=== PATIENT | female | born 1935 | race Caucasian/White ===

== ENCOUNTER 2019-10-24 10:42 | Inpatient (IN) | payer MEDICARE ==
[~2019-10-24] VITALS: Ht 157.5 cm; Wt 64.6 kg
[2019-10-24] MEDS ORDERED: IV NORMAL SALINE 1000ML BAG 1,000 ML IV ONE (11:15)
[2019-10-24 11:24] LABS: BASO % 0 % (0-3); EOS % 0 % (0-3); HEMATOCRIT 43.6 % (36.0-47.0); HEMOGLOBIN 14.8 g/dL (12.0-15.5); LYMPH # 1.2 x10^3/uL (1.0-4.8); LYMPH % 8 % (24-48); MEAN CORPUSCULAR HEMOGLOBIN 30 pg (25-35); MEAN CORPUSCULAR HGB CONC 34 g/dL (31-37); MEAN CORPUSCULAR VOLUME 90 fL (79-100); MONO # 0.5 x10^3/uL (0.0-1.1); MONO % 4 % (0-9); NEUT # 12.2 x10^3/uL (1.8-7.7); NEUT % 88 % (31-73); PLATELET COUNT 189 x10^3/uL (140-400); RED BLOOD COUNT 4.87 x10^6/uL (3.50-5.40); RED CELL DISTRIBUTION WIDTH 12.7 % (11.5-14.5); WHITE BLOOD COUNT 13.9 x10^3/uL (4.0-11.0)
--- NOTE | 2019-10-24 11:24 | PHYS DOC ---
Adult General HPI HPI Patient is a 84 year old [female] who presents with [syncope. Patient reportedly had been found in bathroom by spouse this morning, partially responsive. Patient reports she murmurs getting out of bed, going to bathroom, and the next thing she remembers was laying on the floor with EMS at her side. Patient does reports he does not know what I'm everything happening, reports patient normally does get up at 3:30 in the morning, however he did not see her for a while, and was not sure what she had been this morning. Does report patient had been alert, but not quite her normal self when he found her. Does report patient has had several prior episodes of this in the past, with history of a known they will issue. Patient reportedly had started on new blood pressure medications 1 month ago, including beta jake and amlodipine. Patient denies any complaints, denies any headache, nausea, vomiting, dizziness, diarrhea. Reports she feels pretty good. ] Review of Systems Review of Systems Constitutional: Denies fever or chills [] Eyes: Denies change in visual acuity, redness, or eye pain [] HENT: Denies nasal congestion or sore throat [] Respiratory: Denies cough or shortness of breath [] Cardiovascular: No additional information not addressed in HPI [] GI: Denies abdominal pain, nausea, vomiting, bloody stools or diarrhea [] : Denies dysuria or hematuria [] Musculoskeletal: Denies back pain or joint pain [] Integument: Denies rash or skin lesions [] Neurologic: Denies headache, focal weakness or sensory changes [] Endocrine: Denies polyuria or polydipsia [] All other systems were reviewed and found to be within normal limits, except as documented in this note. Current Medications Current Medications Current Medications Medications (Trade) Dose Ordered Sig/Connor Start Time Stop Time Status Last Admin Dose Admin Sodium Chloride 1,000 ml @ 1,000 mls/hr 1X ONCE 10/24/19 11:15 10/24/19 12:14 DC 10/24/19 11:48 1,000 MLS/HR Allergies Allergies Allergies Coded Allergies Type Severity Reaction Last Updated Verified Penicillins Allergy Severe severe rash sob 10/24/19 Yes Physical Exam Physical Exam Constitutional: Well developed, well nourished, no acute distress, non-toxic appearance. [] HENT: Normocephalic, atraumatic, bilateral external ears normal, no oral exudates, nose normal. Mucous membranes dry.[] Eyes: PERRLA, EOMI, conjunctiva normal, no discharge. [] Neck: Normal range of motion, no tenderness, supple, no stridor. [] Cardiovascular:Heart rate regular rhythm, no murmur [] Lungs & Thorax: Bilateral breath sounds clear to auscultation [] Abdomen: Bowel sounds normal, soft, no tenderness, no masses, no pulsatile masses. [] Skin: Warm, dry, no erythema, no rash. [] Back: No tenderness, no CVA tenderness. [] Extremities: No tenderness, no cyanosis, no clubbing, ROM intact, no edema. Full range of motion of extremities[] Neurologic: Alert and oriented X 3, normal motor function, normal sensory function, no focal deficits noted. Able to identify sensation bilaterally to legs, arms, face.[] Psychologic: Affect normal, judgement normal, mood normal. [] Current Patient Data Vital Signs Vital Signs Date Time Temp Pulse Resp B/P (MAP) Pulse Ox O2 Delivery O2 Flow Rate FiO2 10/24/19 12:27 83 18 96 10/24/19 11:07 97.6 133/52 (79) Room Air 97.6 Lab Values Laboratory Tests Test 10/24/19 11:07 White Blood Count 13.9 x10^3/uL (4.0-11.0) H Red Blood Count 4.87 x10^6/uL (3.50-5.40) Hemoglobin 14.8 g/dL (12.0-15.5) Hematocrit 43.6 % (36.0-47.0) Mean Corpuscular Volume 90 fL (79-100) Mean Corpuscular Hemoglobin 30 pg (25-35) Mean Corpuscular Hemoglobin Concent 34 g/dL (31-37) Red Cell Distribution Width 12.7 % (11.5-14.5) Platelet Count 189 x10^3/uL (140-400) Neutrophils (%) (Auto) 88 % (31-73) H Lymphocytes (%) (Auto) 8 % (24-48) L Monocytes (%) (Auto) 4 % (0-9) Eosinophils (%) (Auto) 0 % (0-3) Basophils (%) (Auto) 0 % (0-3) Neutrophils # (Auto) 12.2 x10^3/uL (1.8-7.7) H Lymphocytes # (Auto) 1.2 x10^3/uL (1.0-4.8) Monocytes # (Auto) 0.5 x10^3/uL (0.0-1.1) Eosinophils # (Auto) 0.0 x10^3/uL (0.0-0.7) Basophils # (Auto) 0.0 x10^3/uL (0.0-0.2) Segmented Neutrophils % 62 % (35-66) Band Neutrophils % 3 % (0-9) Lymphocytes % 30 % (24-48) Monocytes % 4 % (0-10) Eosinophils % 1 % (0-5) Platelet Estimate Adequate (ADEQUATE) Prothrombin Time 12.0 SEC (11.7-14.0) Prothrombin Time INR 0.9 (0.8-1.1) Sodium Level 143 mmol/L (136-145) Potassium Level 4.0 mmol/L (3.5-5.1) Chloride Level 108 mmol/L (98-107) H Carbon Dioxide Level 25 mmol/L (21-32) Anion Gap 10 (6-14) Blood Urea Nitrogen 16 mg/dL (7-20) Creatinine 0.9 mg/dL (0.6-1.0) Estimated GFR (Cockcroft-Gault) 59.5 BUN/Creatinine Ratio 18 (6-20) Glucose Level 120 mg/dL (70-99) H Calcium Level 9.7 mg/dL (8.5-10.1) Total Bilirubin 0.2 mg/dL (0.2-1.0) Aspartate Amino Transferase (AST) 32 U/L (15-37) Alanine Aminotransferase (ALT) 31 U/L (14-59) Alkaline Phosphatase 77 U/L (46-116) Troponin I Quantitative < 0.017 ng/mL (0.000-0.055) Total Protein 7.5 g/dL (6.4-8.2) Albumin 3.9 g/dL (3.4-5.0) Albumin/Globulin Ratio 1.1 (1.0-1.7) Laboratory Tests 10/24/19 11:07 Laboratory Tests 10/24/19 11:07 EKG EKG [no STEMI per Dr Lei @1105. Sinus rhythm. ] Radiology/Procedures Radiology/Procedures [] Course & Med Decision Making Course & Med Decision Making Pertinent Labs and Imaging studies reviewed. (See chart for details) [Patient reports she is feeling better. Patient spouse and family report they feel good with patient returning home Patient to follow up with PCP next week After attempt to stand, patient weak and unable to stand on own. Family co ncerned would like patient to stay in hospital. @1500 - Discussed with Dr Rios, agrees to admit patient, will admit Observation,. ] Dragon Disclaimer Dragon Disclaimer This electronic medical record was generated, in whole or in part, using a voice recognition dictation system. Departure Departure Impression: Primary Impression: Syncope and collapse Additional Impressions: Weakness Fatigue Disposition: ADMITTED INPATIENT Admitting Physician: SHAE Condition: STABLE Referrals: FAUSTINA JOHNSON (PCP) Patient Instructions: Syncope Additional Instructions: As discussed, make sure she continues to stay hydrated, make sure she is taking her medications each day as prescribed. Follow up with her Primary Care provider next week to recheck on her complaints today. Problem Qualifiers Additional Impressions: Fatigue Fatigue type: chronic, unspecified Qualified Codes: R53.82 - Chronic fatigue, unspecified SALTY MONTALVO APRN Oct 24, 2019 11:24
[2019-10-24 11:33] LABS: CALCIUM 9.7 mg/dL (8.5-10.1); CREATININE 0.9 mg/dL (0.6-1.0); GFR 59.5
[2019-10-24 11:39] LABS: ALBUMIN 3.9 g/dL (3.4-5.0); ALBUMIN/GLOBULIN RATIO 1.1 (1.0-1.7); TOTAL BILIRUBIN 0.2 mg/dL (0.2-1.0); TOTAL PROTEIN 7.5 g/dL (6.4-8.2)
--- NOTE | 2019-10-24 12:06 | RAD ---
EXAM: Head CT without contrast. HISTORY: Syncope. TECHNIQUE: Computed tomographic images of the head were obtained without contrast. *One or more of the following individualized dose reduction techniques were utilized for this examination: 1. Automated exposure control. 2. Adjustment of the mA and/or kV according to patient size. 3. Use of iterative reconstruction technique. COMPARISON: None. FINDINGS: There is no evidence of intracranial hemorrhage. There is no mass effect or midline shift. There is moderate ventricular enlargement. There are chronic appearing infarcts within the left putamen and caudate nucleus. There are areas of hypodensity scattered within the cerebral white matter, likely due to chronic small vessel disease. There may be a tiny focus of encephalomalacia due to chronic infarction within the left cerebellum. There is mucosal thickening and a small amount of frothy fluid within the left aspect of the sphenoid sinus. There is evidence of lens surgery. The mastoid air cells are clear. There is no suspicious calvarial lesion. IMPRESSION: 1. No acute intracranial finding. Note is made that MRI is more sensitive for acute infarction. 2. 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 There may also be a tiny chronic infarct within the left cerebellum. 3. Bilateral cerebral white matter changes, most commonly due to chronic small vessel disease. 4. Moderate ventricular enlargement. This appears to be within acceptable limits for the degree of cerebral atrophy. This is not clearly greater than expected for cerebral volume to suggest normal pressure hydrocephalus. Electronically signed by: Janine Troncoso MD (10/24/2019 12:03 PM) [id number]
[2019-10-24 12:26] LABS: % BANDS 3 % (0-9); % EOS 1 % (0-5); % LYMPHS 30 % (24-48); % MONOS 4 % (0-10); % SEGS 62 % (35-66); PLT ESTIMATE ADEQUATE (ADEQUATE)
--- NOTE | 2019-10-24 12:41 | EKG ---
[facility] [address] [place] [address] Test Date: 2019-10-24 Test Time: 11:02:26 Pat Name: MIKE CASTILLO Department: Room: Gender: F Leathersmith: : 1935 Requested By: SALTY MONTALVO Order Number: [id number] Reading MD: Measurements Intervals [place] Rate: 77 P: 67 OK: 156 QRS: 18 QRSD: 78 T: 144 QT: 388 QTc: 441 Interpretive Statements SINUS RHYTHM T ABNORMALITY IN ANTERIOR LEADS LATERAL LEADS INFEROLATERAL LEADS ABNORMAL ECG RI6.01 No previous ECG available for comparison
--- NOTE | 2019-10-24 14:13 | RAD ---
EXAM: CHEST AP ONLY INDICATION: Syncope. TECHNIQUE: Single view COMPARISON: None FINDINGS: Previous sternotomy and placement of a event monitor in the left chest is noted. The heart size is normal. The great vessels appear unremarkable. There is no hilar or mediastinal mass. The lungs show dense nodules in the lateral mid left lung compatible with calcified granulomas but otherwise are clear. There is no pleural effusion or pneumothorax. There are no significant osseous abnormalities. IMPRESSION: No active cardiopulmonary disease. Electronically signed by: Ruben Flores MD (10/24/2019 2:10 PM) [facility]
[2019-10-24] MEDS ORDERED: ONDANSETRON PF 4 MG/2 ML VIAL. IV PRN (15:15)
[2019-10-24 19:00] VITALS: BP 130/48
--- NOTE | 2019-10-24 20:51 | PDOC1 ---
History and Physical Date of Admission: Date of Admission DATE: 10/24/19 TIME: 20:50 Chief Complaint: Problems: (1) Fatigue (2) Weakness (3) Syncope and collapse Chief Complain: Syncope History of Present Illness: HPI: This is an elderly female who was found on the commode slumped over by her this morning Apparently she was in bed went to the bathroom and was feeling okay but then passed out She doesn't remember what happened actually Her called 911 and she was brought to the hospital Now she's starting to wake up feels a little better Rates her symptoms at 7 out of 10 She has some associated weakness Moving makes it worse sitting still makes it better Described as anxiety producing I discussed the case with the ER physician we are going to admit the patient and consult neurology and cardiology for syncopal workup Past Medical/Surgical History: PMH/PSH: Hypertension CAD with bypass Allergies: Allergies: Coded Allergies: Penicillins (Verified Allergy, Severe, severe rash sob, 10/24/19) Family History: Family History: Hypertension Social History: Social Hisoty: 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 EYES: No blurred, double or loss of vision. NOSE AND THROAT: No history of nosebleeds, hoarseness or sore throat. HEART: No history of palpitations, chest pain or shortness of breath on exertion. LUNGS: Denies cough, hemoptysis, wheezing or shortness of breath. GASTROINTESTINAL: Denies changes in appetite, nausea, vomiting, diarrhea or constipation. GENITOURINARY: No history of frequency, urgency, hesitancy or nocturia. NEUROLOGIC: Complains of several episodes of syncope is in the past 8 months PSYCHIATRIC: Complains of anxiety ENDOCRINE: No history of heat or cold intolerance, polyuria or polydipsia. EXTREMITIES: Denies joint pain, pain on walking or stiffness. Physical Exam: Vital Signs: Vital Signs Date Time Temp Pulse Resp B/P (MAP) Pulse Ox O2 Delivery O2 Flow Rate FiO2 10/24/19 15:45 70 23 93 10/24/19 11:07 97.6 133/52 (79) Room Air 97.6 Physcial Exam: GEN: No apparent distress. Alert and oriented HEENT: Normal cephalic, atraumatic, external auditory canals are patent EYES: Extraocular muscles are intact, pupil are equally round and reactive to light and accommodation MUSCULOSKELETAL: Well developed , well nourished, good range of motion ENDOCRINE: No thyromegaly was palpated LYMPHATICS: No cervical chain or axillary nodes were noted HEMATOPOIETIC: No bruising NECK: Supple, no JVD, no thyromegaly was noted LUNGS: Clear to auscultation in all lung muro without rhonchi or wheezing HEART: RRR, S!, S2 present. Peripheral pulses intact, no obvious murmurs noted ABDOMEN: Soft, nontender. Positive bowel sounds, no organomegaly, normal bowel sounds EXTREMITIES: Without clubbing, cyanosis, or edema. Pedal pulses intact. Negative Homans sign NEUROLOGIC: Normal speech and tone. A&O x 3, moves all extremities, no obvi ous focal deficits PSYCHIATRIC: Normal affect, normal mood. Stable SKIN: No ulcerations or rashes, good skin turgor, no jaundice VASCULAR: Good capillary refill, neurovascular bundle appears to be intact Labs: Labs: Laboratory Tests Test 10/24/19 11:07 10/24/19 18:00 White Blood Count 13.9 x10^3/uL (4.0-11.0) Red Blood Count 4.87 x10^6/uL (3.50-5.40) Hemoglobin 14.8 g/dL (12.0-15.5) Hematocrit 43.6 % (36.0-47.0) Mean Corpuscular Volume 90 fL (79-100) Mean Corpuscular Hemoglobin 30 pg (25-35) Mean Corpuscular Hemoglobin Concent 34 g/dL (31-37) Red Cell Distribution Width 12.7 % (11.5-14.5) Platelet Count 189 x10^3/uL (140-400) Neutrophils (%) (Auto) 88 % (31-73) Lymphocytes (%) (Auto) 8 % (24-48) Monocytes (%) (Auto) 4 % (0-9) Eosinophils (%) (Auto) 0 % (0-3) Basophils (%) (Auto) 0 % (0-3) Neutrophils # (Auto) 12.2 x10^3/uL (1.8-7.7) Lymphocytes # (Auto) 1.2 x10^3/uL (1.0-4.8) Monocytes # (Auto) 0.5 x10^3/uL (0.0-1.1) Eosinophils # (Auto) 0.0 x10^3/uL (0.0-0.7) Basophils # (Auto) 0.0 x10^3/uL (0.0-0.2) Segmented Neutrophils % 62 % (35-66) Band Neutrophils % 3 % (0-9) Lymphocytes % 30 % (24-48) Monocytes % 4 % (0-10) Eosinophils % 1 % (0-5) Platelet Estimate Adequate (ADEQUATE) Prothrombin Time 12.0 SEC (11.7-14.0) Prothromb Time International Ratio 0.9 (0.8-1.1) Sodium Level 143 mmol/L (136-145) Potassium Level 4.0 mmol/L (3.5-5.1) Chloride Level 108 mmol/L (98-107) Carbon Dioxide Level 25 mmol/L (21-32) Anion Gap 10 (6-14) Blood Urea Nitrogen 16 mg/dL (7-20) Creatinine 0.9 mg/dL (0.6-1.0) Estimated GFR (Cockcroft-Gault) 59.5 BUN/Creatinine Ratio 18 (6-20) Glucose Level 120 mg/dL (70-99) Calcium Level 9.7 mg/dL (8.5-10.1) Total Bilirubin 0.2 mg/dL (0.2-1.0) Aspartate Amino Transf (AST/SGOT) 32 U/L (15-37) Alanine Aminotransferase (ALT/SGPT) 31 U/L (14-59) Alkaline Phosphatase 77 U/L (46-116) Troponin I Quantitative < 0.017 ng/mL (0.000-0.055) < 0.017 ng/mL (0.000-0.055) Total Protein 7.5 g/dL (6.4-8.2) Albumin 3.9 g/dL (3.4-5.0) Albumin/Globulin Ratio 1.1 (1.0-1.7) Laboratory Tests Test 10/24/19 11:07 10/24/19 18:00 White Blood Count 13.9 x10^3/uL (4.0-11.0) Red Blood Count 4.87 x10^6/uL (3.50-5.40) Hemoglobin 14.8 g/dL (12.0-15.5) Hematocrit 43.6 % (36.0-47.0) Mean Corpuscular Volume 90 fL (79-100) Mean Corpuscular Hemoglobin 30 pg (25-35) Mean Corpuscular Hemoglobin Concent 34 g/dL (31-37) Red Cell Distribution Width 12.7 % (11.5-14.5) Platelet Count 189 x10^3/uL (140-400) Neutrophils (%) (Auto) 88 % (31-73) Lymphocytes (%) (Auto) 8 % (24-48) Monocytes (%) (Auto) 4 % (0-9) Eosinophils (%) (Auto) 0 % (0-3) Basophils (%) (Auto) 0 % (0-3) Neutrophils # (Auto) 12.2 x10^3/uL (1.8-7.7) Lymphocytes # (Auto) 1.2 x10^3/uL (1.0-4.8) Monocytes # (Auto) 0.5 x10^3/uL (0.0-1.1) Eosinophils # (Auto) 0.0 x10^3/uL (0.0-0.7) Basophils # (Auto) 0.0 x10^3/uL (0.0-0.2) Segmented Neutrophils % 62 % (35-66) Band Neutrophils % 3 % (0-9) Lymphocytes % 30 % (24-48) Monocytes % 4 % (0-10) Eosinophils % 1 % (0-5) Platelet Estimate Adequate (ADEQUATE) Prothrombin Time 12.0 SEC (11.7-14.0) Prothromb Time International Ratio 0.9 (0.8-1.1) Sodium Level 143 mmol/L (136-145) Potassium Level 4.0 mmol/L (3.5-5.1) Chloride Level 108 mmol/L (98-107) Carbon Dioxide Level 25 mmol/L (21-32) Anion Gap 10 (6-14) Blood Urea Nitrogen 16 mg/dL (7-20) Creatinine 0.9 mg/dL (0.6-1.0) Estimated GFR (Cockcroft-Gault) 59.5 BUN/Creatinine Ratio 18 (6-20) Glucose Level 120 mg/dL (70-99) Calcium Level 9.7 mg/dL (8.5-10.1) Total Bilirubin 0.2 mg/dL (0.2-1.0) Aspartate Amino Transf (AST/SGOT) 32 U/L (15-37) Alanine Aminotransferase (ALT/SGPT) 31 U/L (14-59) Alkaline Phosphatase 77 U/L (46-116) Troponin I Quantitative < 0.017 ng/mL (0.000-0.055) < 0.017 ng/mL (0.000-0.055) Total Protein 7.5 g/dL (6.4-8.2) Albumin 3.9 g/dL (3.4-5.0) Albumin/Globulin Ratio 1.1 (1.0-1.7) Images: Images EXAM: Head CT without contrast. HISTORY: Syncope. TECHNIQUE: Computed tomographic images of the head were obtained without contrast. *One or more of the following individualized dose reduction techniques were utilized for this examination: 1. Automated exposure control. 2. Adjustment of the mA and/or kV according to patient size. 3. Use of iterative reconstruction technique. COMPARISON: None. FINDINGS: There is no evidence of intracranial hemorrhage. There is no mass effect or midline shift. There is moderate ventricular enlargement. There are chronic appearing infarcts within the left putamen and caudate nucleus. There are areas of hypodensity scattered within the cerebral white matter, likely due to chronic small vessel disease. There may be a tiny focus of encephalomalacia due to chronic infarction within the left cerebellum. There is mucosal thickening and a small amount of frothy fluid within the left aspect of the sphenoid sinus. There is evidence of lens surgery. The mastoid air cells are clear. There is no suspicious calvarial lesion. IMPRESSION: 1. No acute intracranial finding. Note is made that MRI is more sensitive for acute infarction. 2. 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 There may also be a tiny chronic infarct within the left cerebellum. 3. Bilateral cerebral white matter changes, most commonly due to chronic small vessel disease. 4. Moderate ventricular enlargement. This appears to be within acceptable limits for the degree of cerebral atrophy. This is not clearly greater than expected for cerebral volume to suggest normal pressure hydrocephalus. Assessment/Plan Assessment/Plan Syncope suspect cardiac arrhythmia Plan Cardiac monitoring Consult cardiology Consult neurology Empiric IV antibiotics to cover for her mild leukocytosis I ordered a urinalysis Suspect she'll need an echo and an MRI but will await further subspecialist i nput DVT prophylaxis Full code Home meds PT OT She might need snf after this admission Prognosis long-term guarded WINSTON TOLEDO III DO Oct 24, 2019 20:51
[2019-10-24] MEDS: IV NORMAL SALINE 1000ML BAG 1,000 ML IV SCH (22:21)
[2019-10-24 23:00] VITALS: BP 125/50
[2019-10-25] VITALS (7 sets, daily range): BP systolic 131–169; BP diastolic 53–89
[2019-10-25 00:08] LABS: BILIRUBIN,URINE NEGATIVE (NEG); CLARITY,URINE CLOUDY; COLOR,URINE YELLOW; NITRITE,URINE NEGATIVE (NEG); PROTEIN,URINE NEGATIVE (NEG-TRACE); UROBILINOGEN,URINE 0.2 mg/dL (0.2 mg/dL)
[2019-10-25 00:16] LABS: SQUAMOUS EPITHELIAL CELL,UR FEW /LPF
[2019-10-25 00:17] LABS: AMORPHOUS SEDIMENT,UR PRESENT /HPF; BACTERIA,URINE FEW /HPF (0-FEW); RBC,URINE 0 /HPF (0-2)
[2019-10-25 04:27] LABS: BASO # 0.1 x10^3/uL (0.0-0.2); BASO % 1 % (0-3); EOS # 0.1 x10^3/uL (0.0-0.7); EOS % 2 % (0-3); HEMATOCRIT 36.8 % (36.0-47.0); HEMOGLOBIN 12.5 g/dL (12.0-15.5); LYMPH # 2.9 x10^3/uL (1.0-4.8); LYMPH % 37 % (24-48); MEAN CORPUSCULAR HEMOGLOBIN 30 pg (25-35); MEAN CORPUSCULAR HGB CONC 34 g/dL (31-37); MEAN CORPUSCULAR VOLUME 89 fL (79-100); MONO # 0.9 x10^3/uL (0.0-1.1); MONO % 12 % (0-9); NEUT # 3.7 x10^3/uL (1.8-7.7); NEUT % 48 % (31-73); PLATELET COUNT 162 x10^3/uL (140-400); RED BLOOD COUNT 4.12 x10^6/uL (3.50-5.40); RED CELL DISTRIBUTION WIDTH 12.6 % (11.5-14.5); WHITE BLOOD COUNT 7.7 x10^3/uL (4.0-11.0)
[2019-10-25 04:56] LABS: CALCIUM 8.2 mg/dL (8.5-10.1); CREATININE 0.7 mg/dL (0.6-1.0); GFR 79.5; POTASSIUM 3.7 mmol/L (3.5-5.1)
[2019-10-25] MEDS ORDERED: DONE5TAB7 PO (05:35)
[2019-10-25] MEDS ORDERED: ASPI-630 PO (05:39)
[2019-10-25] MEDS ORDERED: ATOR40TA59 PO (05:39)
[2019-10-25] MEDS ORDERED: METO25TA4 PO (05:39)
[2019-10-25] MEDS ORDERED: AMLO5TAB10 PO (05:39)
[2019-10-25] MEDS: IV NORMAL SALINE 1000ML BAG 1,000 ML IV SCH ×2 (06:31→11:05)
[2019-10-25 08:35] LABS: CHOLESTEROL/HDL RATIO 2.1
[2019-10-25] MEDS ORDERED: METOPROLOL TART IMMED RELEASE 25 MG TABLET. PO SCH (09:00)
[2019-10-25] MEDS: ATORVASTATIN CALCIUM 40 MG TABLET. PO SCH (09:08)
[2019-10-25] MEDS: ASPIRIN CHEWABLE 81 MG TABLET. PO SCH (09:08)
[2019-10-25] MEDS: DONEPEZIL HCL 5 MG TABLET. PO SCH (09:08)
[2019-10-25] MEDS: amLODIPine BESYLATE 5 MG TABLET PO SCH (09:08)
[2019-10-25] MEDS ORDERED: ONDANSETRON PF 4 MG/2 ML VIAL. IVP PRN (09:45)
[2019-10-25] MEDS ORDERED: CALCIUM CARBONATE 500 MG TAB.CHEW PO PRN (09:45)
[2019-10-25] MEDS ORDERED: ACETAMINOPHEN/CODEINE 300/30MG TABLET. PO PRN (09:45)
[2019-10-25] MEDS ORDERED: ACETAMINOPHEN 500 MG TABLET PO PRN (09:45)
[2019-10-25] MEDS ORDERED: hydrALAZINE 20 MG/ML VIAL. IVP PRN (09:45)
--- NOTE | 2019-10-25 11:13 | PDOC2 ---
SKYLER GILLILAND CONDITIONING COACH 10/25/19 1113: CARDIAC CONSULT DATE OF CONSULT Date of Consult DATE: 10/25/19 TIME: 10:32 REASON FOR CONSULT Reason for Consult: syncope, CAD REFERRING PHYSICIAN Referring Physician: Gabriel SOURCE Source: Chart review, Patient HISTORY OF PRESENT ILLNESS HISTORY OF PRESENT ILLNESS This is a pleasant 84 yo female admitted for passing out. She lives with her spouse and daughter in room providing me with details as she has hard time remembering. She has no recollection of what other that she went to the bathroom. It is unclear how long she was unconscious. It was in the morning and she was found sitting on the toilet slumped over to the shower side found by her spouse. He then dragged her to the bedroom and she was already awake at that time but feeling weak and before reaching the bed they both fell but no injury. No recollection of any chest pain, SOA but she is unsteady when upright. negative for CSH. Upon admission she was noted to be dehydrated. She just recently moved here from [place] and saw a electrical line worker over there. She actually has an ILR and unclear when it was placed. PAST MEDICAL HISTORY Cardiovascular: CAD, HTN, Hyperlipidemia Pulmonary: No pertinent hx CENTRAL NERVOUS SYSTEM: CVA, Dementia GI: No pertinent hx Heme/Onc: No pertinent hx Hepatobiliary: No pertinent hx Musculoskeletal: Osteoarthritis Rheumatologic: No pertinent hx Infectious disease: No pertinent hx ENT: No pertinent hx Renal/: No pertinent hx Endocrine: No pertinent hx Dermatology: No pertinent hx PAST SURGICAL HISTORY Past Surgical History: CABG (double, 20 yrs ago ), Total knee replacement (right) FAMILY HISTORY Family History: Heart Disease (mother and father) SOCIAL HISTORY Smoke: No ALCOHOL: occassional Drugs: None Lives: with Family (spouse) CURRENT MEDICATIONS CURRENT MEDICATIONS Current Medications Medications (Trade) Dose Ordered Sig/Connor Route PRN Reason Start Time Stop Time Status Last Admin Dose Admin Sodium Chloride 1,000 ml @ 1,000 mls/hr 1X ONCE IV 10/24/19 11:15 10/24/19 12:14 DC 10/24/19 11:48 Sodium Chloride 1,000 ml @ 100 mls/hr Q10H IV 10/24/19 15:05 10/25/19 15:04 10/25/19 06:31 Levofloxacin/ Dextrose 50 ml @ 50 mls/hr Q24H IV 10/24/19 21:00 10/24/19 22:21 Amlodipine Besylate (Norvasc) 5 mg DAILY PO 10/25/19 09:00 10/25/19 09:08 Aspirin (Children'S Aspirin) 81 mg DAILY PO 10/25/19 09:00 10/25/19 09:08 Atorvastatin Calcium (Lipitor) 40 mg DAILY PO 10/25/19 09:00 10/25/19 09:08 Donepezil HCl (Aricept) 5 mg DAILY PO 10/25/19 09:00 10/25/19 09:08 ALLERGIES ALLERGIES: Coded Allergies: Penicillins (Verified Allergy, Severe, severe rash sob, 10/24/19) ROS Review of System 14 point ROS evaluated with pertinent positives noted per HPI PHYSICAL EXAM General: Alert, Oriented X3, Cooperative, No acute distress HEENT: Atraumatic, Mucous membr. moist/pink Lungs: Clear to auscultation, Normal air movement Heart: Regular rate (SR), Normal S1, Normal S2, No murmurs Abdomen: Soft, No tenderness Extremities: No cyanosis, No edema, Other (2+ pedal pulses) Skin: No breakdown, No significant lesion Neuro: Normal speech, Sensation intact Psych/Mental Status: Mental status NL, Mood NL MUSCULOSKELETAL: Osteoarthritic changes both hands VITALS/I&O VITALS/I&O: Vital Signs Date Time Temp Pulse Resp B/P (MAP) Pulse Ox O2 Delivery O2 Flow Rate FiO2 10/25/19 10:03 78 156/60 (92) 10/25/19 08:00 Room Air 10/25/19 07:00 98.1 20 95 98.1 I & O 10/24/19 10/24/19 10/25/19 15:00 23:00 07:00 Intake Total 1000 ml 300 ml Output Total 400 ml Balance 1000 ml 300 ml -400 ml LABS Lab: Laboratory Tests Test 10/24/19 11:07 10/24/19 18:00 10/24/19 23:55 10/25/19 04:05 White Blood Count 13.9 x10^3/uL (4.0-11.0) H 7.7 x10^3/uL (4.0-11.0) Red Blood Count 4.87 x10^6/uL (3.50-5.40) 4.12 x10^6/uL (3.50-5.40) Hemoglobin 14.8 g/dL (12.0-15.5) 12.5 g/dL (12.0-15.5) Hematocrit 43.6 % (36.0-47.0) 36.8 % (36.0-47.0) Mean Corpuscular Volume 90 fL (79-100) 89 fL (79-100) Mean Corpuscular Hemoglobin 30 pg (25-35) 30 pg (25-35) Mean Corpuscular Hemoglobin Concent 34 g/dL (31-37) 34 g/dL (31-37) Red Cell Distribution Width 12.7 % (11.5-14.5) 12.6 % (11.5-14.5) Platelet Count 189 x10^3/uL (140-400) 162 x10^3/uL (140-400) Neutrophils (%) (Auto) 88 % (31-73) H 48 % (31-73) Lymphocytes (%) (Auto) 8 % (24-48) L 37 % (24-48) Monocytes (%) (Auto) 4 % (0-9) 12 % (0-9) H Eosinophils (%) (Auto) 0 % (0-3) 2 % (0-3) Basophils (%) (Auto) 0 % (0-3) 1 % (0-3) Neutrophils # (Auto) 12.2 x10^3/uL (1.8-7.7) H 3.7 x10^3/uL (1.8-7.7) Lymphocytes # (Auto) 1.2 x10^3/uL (1.0-4.8) 2.9 x10^3/uL (1.0-4.8) Monocytes # (Auto) 0.5 x10^3/uL (0.0-1.1) 0.9 x10^3/uL (0.0-1.1) Eosinophils # (Auto) 0.0 x10^3/uL (0.0-0.7) 0.1 x10^3/uL (0.0-0.7) Basophils # (Auto) 0.0 x10^3/uL (0.0-0.2) 0.1 x10^3/uL (0.0-0.2) Segmented Neutrophils % 62 % (35-66) Band Neutrophils % 3 % (0-9) Lymphocytes % 30 % (24-48) Monocytes % 4 % (0-10) Eosinophils % 1 % (0-5) Platelet Estimate Adequate (ADEQUATE) Prothrombin Time 12.0 SEC (11.7-14.0) Prothrombin Time INR 0.9 (0.8-1.1) Sodium Level 143 mmol/L (136-145) 143 mmol/L (136-145) Potassium Level 4.0 mmol/L (3.5-5.1) 3.7 mmol/L (3.5-5.1) Chloride Level 108 mmol/L (98-107) H 110 mmol/L (98-107) H Carbon Dioxide Level 25 mmol/L (21-32) 25 mmol/L (21-32) Anion Gap 10 (6-14) 8 (6-14) Blood Urea Nitrogen 16 mg/dL (7-20) 14 mg/dL (7-20) Creatinine 0.9 mg/dL (0.6-1.0) 0.7 mg/dL (0.6-1.0) Estimated GFR (Cockcroft-Gault) 59.5 79.5 BUN/Creatinine Ratio 18 (6-20) Glucose Level 120 mg/dL (70-99) H 99 mg/dL (70-99) Calcium Level 9.7 mg/dL (8.5-10.1) 8.2 mg/dL (8.5-10.1) L Total Bilirubin 0.2 mg/dL (0.2-1.0) Aspartate Amino Transferase (AST) 32 U/L (15-37) Alanine Aminotransferase (ALT) 31 U/L (14-59) Alkaline Phosphatase 77 U/L (46-116) Troponin I Quantitative < 0.017 ng/mL (0.000-0.055) < 0.017 ng/mL (0.000-0.055) Total Protein 7.5 g/dL (6.4-8.2) Albumin 3.9 g/dL (3.4-5.0) Albumin/Globulin Ratio 1.1 (1.0-1.7) Urine Collection Type Unknown Urine Color Yellow Urine Clarity Cloudy Urine pH 6.0 Urine Specific [place] 1.010 Urine Protein Negative mg/dL (NEG-TRACE) Urine Glucose (UA) Negative mg/dL (NEG) Urine Ketones (Stick) Negative mg/dL (NEG) Urine Blood Negative (NEG) Urine Nitrite Negative (NEG) Urine Bilirubin Negative (NEG) Urine Urobilinogen Dipstick 0.2 mg/dL (0.2 mg/dL) Urine Leukocyte Esterase Moderate (NEG) Urine RBC 0 /HPF (0-2) Urine WBC 11-20 /HPF (0-4) Urine Squamous Epithelial Cells Few /LPF Urine Amorphous Sediment Present /HPF Urine Bacteria Few /HPF (0-FEW) Urine Mucus Slight /LPF Triglycerides Level 48 mg/dL (0-150) Cholesterol Level 134 mg/dL (0-200) LDL Cholesterol, Calculated 60 mg/dL (0-100) VLDL Cholesterol, Calculated 10 mg/dL (0-40) Non-HDL Cholesterol Calculated 70 mg/dL (0-129) HDL Cholesterol 64 mg/dL (40-60) H Cholesterol/HDL Ratio 2.1 Thyroid Stimulating Hormone (TSH) 0.673 uIU/mL (0.358-3.74) Laboratory Tests 10/24/19 11:07 10/25/19 04:05 Laboratory Tests 10/24/19 11:07 10/25/19 04:05 ASSESSMENT/PLAN ASSESSMENT/PLAN 1. Syncope: possibly vasovagal.unclear duration. negative for CSH and orthostasis 2. ILR in situ: medtronic 3. CAD: remote CABG. no recent LHC/MPI. clinically stable, CP free 4. HTN: controlled 5. HLP 6. Hx of CVA 7. Gait disorder 8. Dementia 9. UTI: defer to PCP Recommendations 1. Interrogate ILR 2. TSH, lipids. Continue with secondary prevention measures. Push fluids 3. TTE 4. Moved here from [place] 3 months ago. Will establish cardiology follow up in our office. 5. PT/OT 6. Consider alternative to levaquin as pt was noted with prolonged QT in the past. OSVALDO OCHOA MD 10/25/19 1157: CARDIAC CONSULT ASSESSMENT/PLAN ASSESSMENT/PLAN Patient seen and examined. Agree with MISSION COORDINATOR's assessment and plan. Syncope appears to be vasovagal. Agree with loop recorder interrogation to rule out any significant arrhythmias. CAD status clinically stable. Check 2-D echo to assess LV systolic function and rule out structural abnormalities Ischemic workup could be considered as an outpatient Thank you for your consultation SKYLER GILLILAND APRN Oct 25, 2019 11:13 OSVALDO OCHOA MD Oct 25, 2019 11:54
--- NOTE | 2019-10-25 11:16 | NUR ---
SS following for discharge planning. SS reviewed pt chart. Pt is from with spouse and is currently on room air. PT/OT ordered. SS will continue to follow for discharge planning.
[2019-10-25] MEDS ORDERED: NITR100C6 PO (12:31)
--- NOTE | 2019-10-25 12:31 | PDOC ---
PROGRESS NOTES Chief Complaint Chief Complaint 1. Syncope: possibly vasovagal.unclear duration. negative for CSH and orthostasis 2. ILR in situ: medtronic 3. CAD: remote CABG. no recent LHC/MPI. clinically stable, CP free 4. HTN: controlled 5. HLP 6. Hx of CVA 7. Gait disorder 8. Dementia 9. UTI: defer to PCP 10. ANAPHYLAXIS to PCN History of Present Illness History of Present Illness She feels well, eating lunch with her dtr Cards not reviewed, getting records from her loop recorder that has been tehre for 3 yrs? Also echo just done, read pending Seemingly no pT needs INCIDENTA L UTI, cards requests to change levaquin bec of prolonged interval She says ANAPHYLACXIS as rxn to PCN PLAN: Dc iV levaquin Start macrobid PO now, 100 BID< (im aware of kideny fcn) Await loop recorder record from [place] Echo read today PT OT full code dw dtr Vitals Vitals Vital Signs Date Time Temp Pulse Resp B/P (MAP) Pulse Ox O2 Delivery O2 Flow Rate FiO2 10/25/19 11:00 98.1 74 18 153/64 (93) 93 Room Air 98.1 Physical Exam General: Alert, Oriented X3, Cooperative, No acute distress Heart: Regular rate (SR), Normal S1, Normal S2, No murmurs Abdomen: Soft, No tenderness Extremities: No cyanosis, No edema, Other (2+ pedal pulses) Skin: No breakdown, No significant lesion Labs LABS Laboratory Tests Test 10/24/19 18:00 10/24/19 23:55 10/25/19 04:05 Troponin I Quantitative < 0.017 ng/mL (0.000-0.055) Urine Collection Type Unknown Urine Color Yellow Urine Clarity Cloudy Urine pH 6.0 Urine Specific [place] 1.010 Urine Protein Negative mg/dL (NEG-TRACE) Urine Glucose (UA) Negative mg/dL (NEG) Urine Ketones (Stick) Negative mg/dL (NEG) Urine Blood Negative (NEG) Urine Nitrite Negative (NEG) Urine Bilirubin Negative (NEG) Urine Urobilinogen Dipstick 0.2 mg/dL (0.2 mg/dL) Urine Leukocyte Esterase Moderate (NEG) Urine RBC 0 /HPF (0-2) Urine WBC 11-20 /HPF (0-4) Urine Squamous Epithelial Cells Few /LPF Urine Amorphous Sediment Present /HPF Urine Bacteria Few /HPF (0-FEW) Urine Mucus Slight /LPF White Blood Count 7.7 x10^3/uL (4.0-11.0) Red Blood Count 4.12 x10^6/uL (3.50-5.40) Hemoglobin 12.5 g/dL (12.0-15.5) Hematocrit 36.8 % (36.0-47.0) Mean Corpuscular Volume 89 fL (79-100) Mean Corpuscular Hemoglobin 30 pg (25-35) Mean Corpuscular Hemoglobin Concent 34 g/dL (31-37) Red Cell Distribution Width 12.6 % (11.5-14.5) Platelet Count 162 x10^3/uL (140-400) Neutrophils (%) (Auto) 48 % (31-73) Lymphocytes (%) (Auto) 37 % (24-48) Monocytes (%) (Auto) 12 % (0-9) Eosinophils (%) (Auto) 2 % (0-3) Basophils (%) (Auto) 1 % (0-3) Neutrophils # (Auto) 3.7 x10^3/uL (1.8-7.7) Lymphocytes # (Auto) 2.9 x10^3/uL (1.0-4.8) Monocytes # (Auto) 0.9 x10^3/uL (0.0-1.1) Eosinophils # (Auto) 0.1 x10^3/uL (0.0-0.7) Basophils # (Auto) 0.1 x10^3/uL (0.0-0.2) Sodium Level 143 mmol/L (136-145) Potassium Level 3.7 mmol/L (3.5-5.1) Chloride Level 110 mmol/L (98-107) Carbon Dioxide Level 25 mmol/L (21-32) Anion Gap 8 (6-14) Blood Urea Nitrogen 14 mg/dL (7-20) Creatinine 0.7 mg/dL (0.6-1.0) Estimated GFR (Cockcroft-Gault) 79.5 Glucose Level 99 mg/dL (70-99) Calcium Level 8.2 mg/dL (8.5-10.1) Triglycerides Level 48 mg/dL (0-150) Cholesterol Level 134 mg/dL (0-200) LDL Cholesterol, Calculated 60 mg/dL (0-100) VLDL Cholesterol, Calculated 10 mg/dL (0-40) Non-HDL Cholesterol Calculated 70 mg/dL (0-129) HDL Cholesterol 64 mg/dL (40-60) Cholesterol/HDL Ratio 2.1 Thyroid Stimulating Hormone (TSH) 0.673 uIU/mL (0.358-3.74) Review of Systems Review of Systems neg 14 pt reviewed with her Assessment and Plan Assessmemt and Plan Problems Medical Problems: (1) Fatigue Status: Acute (2) Syncope and collapse Status: Acute (3) Weakness Status: Acute Comment Review of Relevant I have reviewed the following items yordy (where applicable) has been applied. Labs Laboratory Tests Test 10/24/19 11:07 10/24/19 18:00 10/24/19 23:55 10/25/19 04:05 White Blood Count 13.9 x10^3/uL (4.0-11.0) 7.7 x10^3/uL (4.0-11.0) Red Blood Count 4.87 x10^6/uL (3.50-5.40) 4.12 x10^6/uL (3.50-5.40) Hemoglobin 14.8 g/dL (12.0-15.5) 12.5 g/dL (12.0-15.5) Hematocrit 43.6 % (36.0-47.0) 36.8 % (36.0-47.0) Mean Corpuscular Volume 90 fL (79-100) 89 fL (79-100) Mean Corpuscular Hemoglobin 30 pg (25-35) 30 pg (25-35) Mean Corpuscular Hemoglobin Concent 34 g/dL (31-37) 34 g/dL (31-37) Red Cell Distribution Width 12.7 % (11.5-14.5) 12.6 % (11.5-14.5) Platelet Count 189 x10^3/uL (140-400) 162 x10^3/uL (140-400) Neutrophils (%) (Auto) 88 % (31-73) 48 % (31-73) Lymphocytes (%) (Auto) 8 % (24-48) 37 % (24-48) Monocytes (%) (Auto) 4 % (0-9) 12 % (0-9) Eosinophils (%) (Auto) 0 % (0-3) 2 % (0-3) Basophils (%) (Auto) 0 % (0-3) 1 % (0-3) Neutrophils # (Auto) 12.2 x10^3/uL (1.8-7.7) 3.7 x10^3/uL (1.8-7.7) Lymphocytes # (Auto) 1.2 x10^3/uL (1.0-4.8) 2.9 x10^3/uL (1.0-4.8) Monocytes # (Auto) 0.5 x10^3/uL (0.0-1.1) 0.9 x10^3/uL (0.0-1.1) Eosinophils # (Auto) 0.0 x10^3/uL (0.0-0.7) 0.1 x10^3/uL (0.0-0.7) Basophils # (Auto) 0.0 x10^3/uL (0.0-0.2) 0.1 x10^3/uL (0.0-0.2) Segmented Neutrophils % 62 % (35-66) Band Neutrophils % 3 % (0-9) Lymphocytes % 30 % (24-48) Monocytes % 4 % (0-10) Eosinophils % 1 % (0-5) Platelet Estimate Adequate (ADEQUATE) Prothrombin Time 12.0 SEC (11.7-14.0) Prothromb Time International Ratio 0.9 (0.8-1.1) Sodium Level 143 mmol/L (136-145) 143 mmol/L (136-145) Potassium Level 4.0 mmol/L (3.5-5.1) 3.7 mmol/L (3.5-5.1) Chloride Level 108 mmol/L (98-107) 110 mmol/L (98-107) Carbon Dioxide Level 25 mmol/L (21-32) 25 mmol/L (21-32) Anion Gap 10 (6-14) 8 (6-14) Blood Urea Nitrogen 16 mg/dL (7-20) 14 mg/dL (7-20) Creatinine 0.9 mg/dL (0.6-1.0) 0.7 mg/dL (0.6-1.0) Estimated GFR (Cockcroft-Gault) 59.5 79.5 BUN/Creatinine Ratio 18 (6-20) Glucose Level 120 mg/dL (70-99) 99 mg/dL (70-99) Calcium Level 9.7 mg/dL (8.5-10.1) 8.2 mg/dL (8.5-10.1) Total Bilirubin 0.2 mg/dL (0.2-1.0) Aspartate Amino Transf (AST/SGOT) 32 U/L (15-37) Alanine Aminotransferase (ALT/SGPT) 31 U/L (14-59) Alkaline Phosphatase 77 U/L (46-116) Troponin I Quantitative < 0.017 ng/mL (0.000-0.055) < 0.017 ng/mL (0.000-0.055) Total Protein 7.5 g/dL (6.4-8.2) Albumin 3.9 g/dL (3.4-5.0) Albumin/Globulin Ratio 1.1 (1.0-1.7) Urine Collection Type Unknown Urine Color Yellow Urine Clarity Cloudy Urine pH 6.0 Urine Specific [place] 1.010 Urine Protein Negative mg/dL (NEG-TRACE) Urine Glucose (UA) Negative mg/dL (NEG) Urine Ketones (Stick) Negative mg/dL (NEG) Urine Blood Negative (NEG) Urine Nitrite Negative (NEG) Urine Bilirubin Negative (NEG) Urine Urobilinogen Dipstick 0.2 mg/dL (0.2 mg/dL) Urine Leukocyte Esterase Moderate (NEG) Urine RBC 0 /HPF (0-2) Urine WBC 11-20 /HPF (0-4) Urine Squamous Epithelial Cells Few /LPF Urine Amorphous Sediment Present /HPF Urine Bacteria Few /HPF (0-FEW) Urine Mucus Slight /LPF Triglycerides Level 48 mg/dL (0-150) Cholesterol Level 134 mg/dL (0-200) LDL Cholesterol, Calculated 60 mg/dL (0-100) VLDL Cholesterol, Calculated 10 mg/dL (0-40) Non-HDL Cholesterol Calculated 70 mg/dL (0-129) HDL Cholesterol 64 mg/dL (40-60) Cholesterol/HDL Ratio 2.1 Thyroid Stimulating Hormone (TSH) 0.673 uIU/mL (0.358-3.74) Laboratory Tests Test 10/24/19 18:00 10/24/19 23:55 10/25/19 04:05 Troponin I Quantitative < 0.017 ng/mL (0.000-0.055) Urine Collection Type Unknown Urine Color Yellow Urine Clarity Cloudy Urine pH 6.0 Urine Specific [place] 1.010 Urine Protein Negative mg/dL (NEG-TRACE) Urine Glucose (UA) Negative mg/dL (NEG) Urine Ketones (Stick) Negative mg/dL (NEG) Urine Blood Negative (NEG) Urine Nitrite Negative (NEG) Urine Bilirubin Negative (NEG) Urine Urobilinogen Dipstick 0.2 mg/dL (0.2 mg/dL) Urine Leukocyte Esterase Moderate (NEG) Urine RBC 0 /HPF (0-2) Urine WBC 11-20 /HPF (0-4) Urine Squamous Epithelial Cells Few /LPF Urine Amorphous Sediment Present /HPF Urine Bacteria Few /HPF (0-FEW) Urine Mucus Slight /LPF White Blood Count 7.7 x10^3/uL (4.0-11.0) Red Blood Count 4.12 x10^6/uL (3.50-5.40) Hemoglobin 12.5 g/dL (12.0-15.5) Hematocrit 36.8 % (36.0-47.0) Mean Corpuscular Volume 89 fL (79-100) Mean Corpuscular Hemoglobin 30 pg (25-35) Mean Corpuscular Hemoglobin Concent 34 g/dL (31-37) Red Cell Distribution Width 12.6 % (11.5-14.5) Platelet Count 162 x10^3/uL (140-400) Neutrophils (%) (Auto) 48 % (31-73) Lymphocytes (%) (Auto) 37 % (24-48) Monocytes (%) (Auto) 12 % (0-9) Eosinophils (%) (Auto) 2 % (0-3) Basophils (%) (Auto) 1 % (0-3) Neutrophils # (Auto) 3.7 x10^3/uL (1.8-7.7) Lymphocytes # (Auto) 2.9 x10^3/uL (1.0-4.8) Monocytes # (Auto) 0.9 x10^3/uL (0.0-1.1) Eosinophils # (Auto) 0.1 x10^3/uL (0.0-0.7) Basophils # (Auto) 0.1 x10^3/uL (0.0-0.2) Sodium Level 143 mmol/L (136-145) Potassium Level 3.7 mmol/L (3.5-5.1) Chloride Level 110 mmol/L (98-107) Carbon Dioxide Level 25 mmol/L (21-32) Anion Gap 8 (6-14) Blood Urea Nitrogen 14 mg/dL (7-20) Creatinine 0.7 mg/dL (0.6-1.0) Estimated GFR (Cockcroft-Gault) 79.5 Glucose Level 99 mg/dL (70-99) Calcium Level 8.2 mg/dL (8.5-10.1) Triglycerides Level 48 mg/dL (0-150) Cholesterol Level 134 mg/dL (0-200) LDL Cholesterol, Calculated 60 mg/dL (0-100) VLDL Cholesterol, Calculated 10 mg/dL (0-40) Non-HDL Cholesterol Calculated 70 mg/dL (0-129) HDL Cholesterol 64 mg/dL (40-60) Cholesterol/HDL Ratio 2.1 Thyroid Stimulating Hormone (TSH) 0.673 uIU/mL (0.358-3.74) Medications Current Medications Sodium Chloride 1,000 ml @ 1,000 mls/hr 1X ONCE IV Last administered on 10/24/19at 11:48; Start 10/24/19 at 11:15; Stop 10/24/19 at 12:14; Status DC Ondansetron HCl (Zofran) 4 mg PRN Q8HRS PRN IV NAUSEA/VOMITING; Start 10/24/19 at 15:15; Stop 10/25/19 at 09:33; Status DC Sodium Chloride 1,000 ml @ 100 mls/hr Q10H IV Last administered on 10/25/19at 06:31; Start 10/24/19 at 15:05; Stop 10/25/19 at 15:04 Levofloxacin/ Dextrose 50 ml @ 50 mls/hr Q24H IV Last administered on 10/24/19at 22:21; Start 10/24/19 at 21:00; Stop 10/25/19 at 12:17; Status DC Amlodipine Besylate (Norvasc) 5 mg DAILY PO Last administered on 10/25/19at 09:08; Start 10/25/19 at 09:00 Aspirin (Children'S Aspirin) 81 mg DAILY PO Last administered on 10/25/19at 09:08; Start 10/25/19 at 09:00 Atorvastatin Calcium (Lipitor) 40 mg DAILY PO Last administered on 10/25/19at 09:08; Start 10/25/19 at 09:00 Donepezil HCl (Aricept) 5 mg DAILY PO Last administered on 10/25/19at 09:08; Start 10/25/19 at 09:00 Metoprolol Tartrate (Lopressor) 25 mg DAILY PO ; Start 10/25/19 at 09:00 Acetaminophen/ Codeine Phosphate (Tylenol #3) 1 tab PRN Q6HRS PRN PO MODERATE-SEVERE PAIN; Start 10/25/19 at 09:45 Acetaminophen (Tylenol) 500 mg PRN Q6HRS PRN PO MILD PAIN / TEMP; Start 10/25/19 at 09:45 Ondansetron HCl (Zofran) 4 mg PRN Q6HRS PRN IVP NAUSEA/VOMITING; Start 10/25/19 at 09:45 Calcium Carbonate/ Glycine (Tums) 500 mg PRN AFTMEALHC PRN PO INDIGESTION; Start 10/25/19 at 09:45 Hydralazine HCl (Apresoline Inj) 10 mg PRN Q4HRS PRN IVP ELEVATED BP, SEE COMMENTS; Start 10/25/19 at 09:45 Active Scripts Active Reported Atorvastatin Calcium 40 Mg Tablet 1 Tab PO DAILY Amlodipine Besylate 5 Mg Tablet 5 Mg PO DAILY Metoprolol Tartrate 25 Mg Tablet 1 Tab PO DAILY Aspirin 81 Mg Tab.chew 1 Tab PO DAILY Donepezil Hcl 5 Mg Tablet 1 Tab PO DAILY Vitals/I & O Vital Sign - Last 24 Hours 10/24/19 10/24/19 10/24/19 10/24/19 12:27 12:57 13:27 13:57 Pulse 83 82 87 85 Resp 18 18 18 16 Pulse Ox 96 10/24/19 10/24/19 10/24/19 10/24/19 14:27 14:57 15:45 19:00 Temp 98.2 98.2 Pulse 88 82 70 69 Resp 16 16 23 16 B/P (MAP) 130/48 (75) Pulse Ox 93 95 O2 Delivery Room Air 10/24/19 10/24/19 10/25/19 10/25/19 20:20 23:00 02:55 07:00 Temp 98.6 97.8 98.1 98.6 97.8 98.1 Pulse 69 71 63 Resp 16 16 20 B/P (MAP) 125/50 (75) 147/53 (84) 168/70 (102) Pulse Ox 93 93 95 O2 Delivery Room Air Room Air Room Air Room Air 10/25/19 10/25/19 10/25/19 10/25/19 08:00 09:00 09:08 10:03 Pulse 63 63 75 B/P (MAP) 168/70 168/70 133/56 (81) O2 Delivery Room Air 10/25/19 10/25/19 10/25/19 10:03 10:03 11:00 Temp 98.1 98.1 Pulse 87 78 74 Resp 18 B/P (MAP) 169/75 (106) 156/60 (92) 153/64 (93) Pulse Ox 93 O2 Delivery Room Air Intake and Output 10/24/19 10/24/19 10/25/19 15:00 23:00 07:00 Intake Total 1000 ml 300 ml Output Total 400 ml Balance 1000 ml 300 ml -400 ml GENEVIEVE REDDING MD Oct 25, 2019 12:30
--- NOTE | 2019-10-25 14:54 | CARD ---
MR#: [id number] Date of Study: 10/25/2019 Ordering Physician: SKYLER GILLILAND, Referring Physician: SKYLER GILLILAND, Tech: Marilynn Terrell [facility] APPROVED REPORT EXAM: Two-dimensional and M-mode echocardiogram with Doppler and color Doppler. Other Information Quality : Good INDICATION Abnormal ECG Syncope 2D DIMENSIONS RVDd2.9 (2.9-3.5cm)Left Atrium(2D)3.5 (1.6-4.0cm) IVSd1.1 (0.7-1.1cm)Aortic Root(2D)2.9 (2.0-3.7cm) LVDd4.2 (3.9-5.9cm)LVOT Diameter2.0 (1.8-2.4cm) PWd0.8 (0.7-1.1cm)LVDs2.4 (2.5-4.0cm) FS (%) 30.0 %SV58.1 ml LVEF(%)60.0 (>50%) Aortic Valve AoV Peak Alverto.109.8cm/sAoV VTI23.4cm AO Peak GR.4.8mmHgLVOT VTI 22.53cm AO Mean GR.3mmHgAVA (VTI)2.90cm2 Mitral Valve MV E Siwwsuxv75.4cm/sMV DECEL GETC033wm MV A Wogowymx505.0cm/sE/A Ratio0.9 TDI Lateral E' P. V3.67cm/sMedial E' P. V8.30cm/s E/Lateral E'26.3E/Medial E'11.6 Tricuspid Valve TR P. Ydbslvnl869np/sRAP RQSVIPEY5wnKa TR Peak Gr.[id number] Pulmonary Vein S1 Hocrakro36.2cm/sS2 Lrptzkkp10.14cm/s D2 Lajeirhr05.1cm/s LEFT VENTRICLE The left ventricle is normal size. There is normal left ventricular wall thickness. The left ventricu lar systolic function is normal and the ejection fraction is within normal range. The Ejection Fracti on is 55-60%. There is normal LV segmental wall motion. Transmitral Doppler flow pattern is Grade I-a bnormal relaxation pattern. RIGHT VENTRICLE The right ventricle is normal size. The right ventricular systolic function is normal. ATRIA The left atrium size is normal. The right atrium size is normal. The interatrial septum is intact wit h no evidence for an atrial septal defect or patent foramen ovale as noted on 2-D or Doppler imaging. AORTIC VALVE The aortic valve is calcified but opens well. Doppler and Color Flow revealed no significant aortic r egurgitation. There is no significant aortic valvular stenosis. MITRAL VALVE The mitral valve is calcified but opens well. Mitral annular calcification is mild. There is no evide nce of mitral valve prolapse. There is no mitral valve stenosis. Doppler and Color-flow revealed trac e mitral regurgitation. TRICUSPID VALVE The tricuspid valve is normal in structure and function. Doppler and Color Flow revealed trace to mil d tricuspid regurgitation. The PA pressure was estimated at 30 mmHg. There is no tricuspid valve sten osis. PULMONIC VALVE The pulmonary valve is normal in structure and function. Doppler and Color Flow revealed no pulmonic valvular regurgitation. There is no pulmonic valvular stenosis. GREAT VESSELS The aortic root is normal in size. The ascending aorta is normal in size. The IVC is normal in size a nd collapses >50% with inspiration. PERICARDIAL EFFUSION There is no evidence of significant pericardial effusion. Critical Notification Critical Value: No <Conclusion> The left ventricle is normal size. The left ventricular systolic function is normal and the ejection fraction is within normal range. The Ejection Fraction is 55-60%. Doppler and Color Flow revealed no significant aortic regurgitation. There is no significant aortic valvular stenosis. Doppler and Color-flow revealed trace mitral regurgitation. Doppler and Color Flow revealed trace to mild tricuspid regurgitation. The PA pressure was estimated at 30 mmHg. Signed by : Shyam Oates MD Electronically Approved : 10/25/2019 14:54:09
--- NOTE | 2019-10-25 17:18 | PDOC2 ---
NEUROLOGY CONSULT Date of Admission Date of Admission DATE: 10/25/19 TIME: 17:03 Reason for Consult Reason for Consult: IMPRESSION: Syncope. UTI. HTN. HLD. CAD. 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 Cognitive impairment. RECOMMENDATIONS/PLAN: Treat medical diseases. Consulted Cardiology. EEG, can be done as outpatient base. Lab: see orders. OT/PT. Discussed in all detail with her daughter at bedside on 10/25/19. HCT: No acute findings. Echo: unremarkable. HISTORY OF PRESENT ILLNESS This is an 84-year-old female patient with above medical diseases was brought by EMS into the ER of [facility] after having syncope. Patient was reportedly was found in bathroom by her 89-year-old with partially responsive this morning. Patient reported that she got out of bed to go bathroom, but the next thing she remembered was laying on the floor with EMS at her side. Her found her in bathroom decreased response and tried to take her back to bed but both of them fell per her daughter. So EMS was called. PAST MEDICAL HISTORY Cardiovascular: CAD, HTN, Hyperlipidemia Pulmonary: No pertinent hx CENTRAL NERVOUS SYSTEM: CVA, Dementia GI: No pertinent hx Heme/Onc: No pertinent hx Hepatobiliary: No pertinent hx Musculoskeletal: Osteoarthritis Rheumatologic: No pertinent hx Infectious disease: No pertinent hx ENT: No pertinent hx Renal/: No pertinent hx Endocrine: No pertinent hx Dermatology: No pertinent hx PAST SURGICAL HISTORY CABG (double, 20 yrs ago ), Total knee replacement (right) FAMILY HISTORY Heart Disease (mother and father) ALLERGIES Coded Allergies: Penicillins (Verified Allergy, Severe, severe rash sob, 10/24/19) SOCIAL HISTORY Smoke: No ALCOHOL: occasional Drugs: None Lives: with Family (spouse) MEDICATIONS: Refer to [facility] REVIEW OF SYSTEMS: Constitutional: No malnutrition, weight loss, cachexia. Head: No traumatic brain or head injury. Skin: No edema, or rash. Ear: No infection. Eyes: No vision loss or color blindness. Nose: No bleeding or purulent discharges. Hearing: Hearing decrease. Neck: No injury. Breast: No history of cancer, masses,or discharges. Cardiac: CAD, s/p CABG, HTN, HLD. Pulmonary: No COPD. GI: No GI ulcer, GI bleeding. Urinary/genital: UTI. Endocrinologic: No cousin face, craniofacial dysmorphism, polydactyly. Skeletomuscular: No muscular atrophy, deformity. Neurological: see HP. Psychiatric: Denies drug use/abuse. Otherwise, not [id number] review of systems. PHYSICAL EXAMINATION: General appearance is in subacute distress. HEENT: Normocephalic and nontraumatic. Eyes, nose, ears, and throat are unremarkable. Neck is supple. No lymphadenopathy. No bruits are heard over the carotid artery. No crepitus. Cardiovascular: S1, S2, regular rate and rhythm. Pulmonary: Clear to auscultation bilaterally. Abdomen: Bowel sounds are positive. Abdomen is soft, nontender, and nondistended. Extremities: No rash, lesions, or edema. No restriction of range of motion NEUROLOGICAL EXAMINATION: Awake. Oriented to time, place and person. PERRL. EOMI. CN: no focal findings. Muscle tone: within normal. Muscle strength: 5 DTR: 2 Plantar reflex: Flexor response bilaterally Gait: not examined in bed. Sensory exam: no abnormal findings. No cerebellar signs elicited. F-T-N test fine. Current Medications Current Medications Current Medications Sodium Chloride 1,000 ml @ 1,000 mls/hr 1X ONCE IV Last administered on 10/24/19at 11:48; Start 10/24/19 at 11:15; Stop 10/24/19 at 12:14; Status DC Ondansetron HCl (Zofran) 4 mg PRN Q8HRS PRN IV NAUSEA/VOMITING; Start 10/24/19 at 15:15; Stop 10/25/19 at 09:33; Status DC Sodium Chloride 1,000 ml @ 100 mls/hr Q10H IV Last administered on 10/25/19at 06:31; Start 10/24/19 at 15:05; Stop 10/25/19 at 15:04; Status DC Levofloxacin/ Dextrose 50 ml @ 50 mls/hr Q24H IV Last administered on 10/24/19at 22:21; Start 10/24/19 at 21:00; Stop 10/25/19 at 12:17; Status DC Amlodipine Besylate (Norvasc) 5 mg DAILY PO Last administered on 10/25/19at 09:08; Start 10/25/19 at 09:00 Aspirin (Children'S Aspirin) 81 mg DAILY PO Last administered on 10/25/19at 09:08; Start 10/25/19 at 09:00 Atorvastatin Calcium (Lipitor) 40 mg DAILY PO Last administered on 10/25/19at 09:08; Start 10/25/19 at 09:00 Donepezil HCl (Aricept) 5 mg DAILY PO Last administered on 10/25/19at 09:08; Start 10/25/19 at 09:00 Metoprolol Tartrate (Lopressor) 25 mg DAILY PO ; Start 10/25/19 at 09:00; Stop 10/25/19 at 13:47; Status DC Acetaminophen/ Codeine Phosphate (Tylenol #3) 1 tab PRN Q6HRS PRN PO MODERATE- SEVERE PAIN; Start 10/25/19 at 09:45 Acetaminophen (Tylenol) 500 mg PRN Q6HRS PRN PO MILD PAIN / TEMP; Start at 09:45 Ondansetron HCl (Zofran) 4 mg PRN Q6HRS PRN IVP NAUSEA/VOMITING; Start 10/25/19 at 09:45 Calcium Carbonate/ Glycine (Tums) 500 mg PRN AFTMEALHC PRN PO INDIGESTION; Start 10/25/19 at 09:45 Hydralazine HCl (Apresoline Inj) 10 mg PRN Q4HRS PRN IVP ELEVATED BP, SEE COMMENTS; Start 10/25/19 at 09:45 Nitrofurantoin Macrocrystals (Macrobid) 100 mg BID PO ; Start 10/25/19 at 21:00 Metoprolol Tartrate (Lopressor) 25 mg BID PO ; Start 10/25/19 at 21:00 Active Scripts Active Nitrofurantoin [place]-Mcr 100 Mg (Nitrofurantoin Monohyd/M-Cryst) 100 Mg Capsule 100 Mg PO BID 7 Days Reported Atorvastatin Calcium 40 Mg Tablet 1 Tab PO DAILY Amlodipine Besylate 5 Mg Tablet 5 Mg PO DAILY Metoprolol Tartrate 25 Mg Tablet 1 Tab PO DAILY Aspirin 81 Mg Tab.chew 1 Tab PO DAILY Donepezil Hcl 5 Mg Tablet 1 Tab PO DAILY Allergies Allergies: Allergies Coded Allergies Type Severity Reaction Last Updated Verified Penicillins Allergy Severe severe rash sob 10/24/19 Yes ROS Review of System The patient denies any associated fevers, chills, headache, ear pain, rhinorrhea, sore throat, stiff neck, productive cough, chest pain, shortness of breath, back or flank pain, abdominal pain, nausea, vomiting, diarrhea, constipation, dysuria, rash, numbness, weakness, tingling, incontinence, difficulty ambulating, or diaphoresis. Physical Exam Physical Exam General: Well developed, well nourished, no acute distress, well appearing HEENT: Pupils equally round and reactive to light, EOMI, no discharge, normal conjunctiva Neck: Supple, no nuchal rigidity, no JVD, trachea midline, no tenderness Cardiac: RRR, no murmurs, no gallops, no rubs Chest/Lungs: CTAB, no wheeze, no rhonchi, no crackles Abdomen: soft, non-distended, no guarding, no peritoneal signs, non-tender Back: No tenderness Extremities: no edema, pulses intact, non-tender,capillary refill <3 sec bila teral upper and lower extremities, Neuro: Alert and oriented x 4, no focal deficits, normal speech Vitals Vitals: Vital Signs Date Time Temp Pulse Resp B/P (MAP) Pulse Ox O2 Delivery O2 Flow Rate FiO2 10/25/19 15:25 97.6 64 18 136/54 (81) 96 Room Air 97.6 Labs Labs Laboratory Tests Test 10/24/19 11:07 10/24/19 18:00 10/24/19 23:55 10/25/19 04:05 White Blood Count 13.9 x10^3/uL (4.0-11.0) 7.7 x10^3/uL (4.0-11.0) Red Blood Count 4.87 x10^6/uL (3.50-5.40) 4.12 x10^6/uL (3.50-5.40) Hemoglobin 14.8 g/dL (12.0-15.5) 12.5 g/dL (12.0-15.5) Hematocrit 43.6 % (36.0-47.0) 36.8 % (36.0-47.0) Mean Corpuscular Volume 90 fL (79-100) 89 fL (79-100) Mean Corpuscular Hemoglobin 30 pg (25-35) 30 pg (25-35) Mean Corpuscular Hemoglobin Concent 34 g/dL (31-37) 34 g/dL (31-37) Red Cell Distribution Width 12.7 % (11.5-14.5) 12.6 % (11.5-14.5) Platelet Count 189 x10^3/uL (140-400) 162 x10^3/uL (140-400) Neutrophils (%) (Auto) 88 % (31-73) 48 % (31-73) Lymphocytes (%) (Auto) 8 % (24-48) 37 % (24-48) Monocytes (%) (Auto) 4 % (0-9) 12 % (0-9) Eosinophils (%) (Auto) 0 % (0-3) 2 % (0-3) Basophils (%) (Auto) 0 % (0-3) 1 % (0-3) Neutrophils # (Auto) 12.2 x10^3/uL (1.8-7.7) 3.7 x10^3/uL (1.8-7.7) Lymphocytes # (Auto) 1.2 x10^3/uL (1.0-4.8) 2.9 x10^3/uL (1.0-4.8) Monocytes # (Auto) 0.5 x10^3/uL (0.0-1.1) 0.9 x10^3/uL (0.0-1.1) Eosinophils # (Auto) 0.0 x10^3/uL (0.0-0.7) 0.1 x10^3/uL (0.0-0.7) Basophils # (Auto) 0.0 x10^3/uL (0.0-0.2) 0.1 x10^3/uL (0.0-0.2) Segmented Neutrophils % 62 % (35-66) Band Neutrophils % 3 % (0-9) Lymphocytes % 30 % (24-48) Monocytes % 4 % (0-10) Eosinophils % 1 % (0-5) Platelet Estimate Adequate (ADEQUATE) Prothrombin Time 12.0 SEC (11.7-14.0) Prothromb Time International Ratio 0.9 (0.8-1.1) Sodium Level 143 mmol/L (136-145) 143 mmol/L (136-145) Potassium Level 4.0 mmol/L (3.5-5.1) 3.7 mmol/L (3.5-5.1) Chloride Level 108 mmol/L (98-107) 110 mmol/L (98-107) Carbon Dioxide Level 25 mmol/L (21-32) 25 mmol/L (21-32) Anion Gap 10 (6-14) 8 (6-14) Blood Urea Nitrogen 16 mg/dL (7-20) 14 mg/dL (7-20) Creatinine 0.9 mg/dL (0.6-1.0) 0.7 mg/dL (0.6-1.0) Estimated GFR (Cockcroft-Gault) 59.5 79.5 BUN/Creatinine Ratio 18 (6-20) Glucose Level 120 mg/dL (70-99) 99 mg/dL (70-99) Calcium Level 9.7 mg/dL (8.5-10.1) 8.2 mg/dL (8.5-10.1) Total Bilirubin 0.2 mg/dL (0.2-1.0) Aspartate Amino Transf (AST/SGOT) 32 U/L (15-37) Alanine Aminotransferase (ALT/SGPT) 31 U/L (14-59) Alkaline Phosphatase 77 U/L (46-116) Troponin I Quantitative < 0.017 ng/mL (0.000-0.055) < 0.017 ng/mL (0.000-0.055) Total Protein 7.5 g/dL (6.4-8.2) Albumin 3.9 g/dL (3.4-5.0) Albumin/Globulin Ratio 1.1 (1.0-1.7) Urine Collection Type Unknown Urine Color Yellow Urine Clarity Cloudy Urine pH 6.0 Urine Specific [place] 1.010 Urine Protein Negative mg/dL (NEG-TRACE) Urine Glucose (UA) Negative mg/dL (NEG) Urine Ketones (Stick) Negative mg/dL (NEG) Urine Blood Negative (NEG) Urine Nitrite Negative (NEG) Urine Bilirubin Negative (NEG) Urine Urobilinogen Dipstick 0.2 mg/dL (0.2 mg/dL) Urine Leukocyte Esterase Moderate (NEG) Urine RBC 0 /HPF (0-2) Urine WBC 11-20 /HPF (0-4) Urine Squamous Epithelial Cells Few /LPF Urine Amorphous Sediment Present /HPF Urine Bacteria Few /HPF (0-FEW) Urine Mucus Slight /LPF Triglycerides Level 48 mg/dL (0-150) Cholesterol Level 134 mg/dL (0-200) LDL Cholesterol, Calculated 60 mg/dL (0-100) VLDL Cholesterol, Calculated 10 mg/dL (0-40) Non-HDL Cholesterol Calculated 70 mg/dL (0-129) HDL Cholesterol 64 mg/dL (40-60) Cholesterol/HDL Ratio 2.1 Thyroid Stimulating Hormone (TSH) 0.673 uIU/mL (0.358-3.74) Laboratory Tests Test 10/24/19 18:00 10/24/19 23:55 10/25/19 04:05 Troponin I Quantitative < 0.017 ng/mL (0.000-0.055) Urine Collection Type Unknown Urine Color Yellow Urine Clarity Cloudy Urine pH 6.0 Urine Specific [place] 1.010 Urine Protein Negative mg/dL (NEG-TRACE) Urine Glucose (UA) Negative mg/dL (NEG) Urine Ketones (Stick) Negative mg/dL (NEG) Urine Blood Negative (NEG) Urine Nitrite Negative (NEG) Urine Bilirubin Negative (NEG) Urine Urobilinogen Dipstick 0.2 mg/dL (0.2 mg/dL) Urine Leukocyte Esterase Moderate (NEG) Urine RBC 0 /HPF (0-2) Urine WBC 11-20 /HPF (0-4) Urine Squamous Epithelial Cells Few /LPF Urine Amorphous Sediment Present /HPF Urine Bacteria Few /HPF (0-FEW) Urine Mucus Slight /LPF White Blood Count 7.7 x10^3/uL (4.0-11.0) Red Blood Count 4.12 x10^6/uL (3.50-5.40) Hemoglobin 12.5 g/dL (12.0-15.5) Hematocrit 36.8 % (36.0-47.0) Mean Corpuscular Volume 89 fL (79-100) Mean Corpuscular Hemoglobin 30 pg (25-35) Mean Corpuscular Hemoglobin Concent 34 g/dL (31-37) Red Cell Distribution Width 12.6 % (11.5-14.5) Platelet Count 162 x10^3/uL (140-400) Neutrophils (%) (Auto) 48 % (31-73) Lymphocytes (%) (Auto) 37 % (24-48) Monocytes (%) (Auto) 12 % (0-9) Eosinophils (%) (Auto) 2 % (0-3) Basophils (%) (Auto) 1 % (0-3) Neutrophils # (Auto) 3.7 x10^3/uL (1.8-7.7) Lymphocytes # (Auto) 2.9 x10^3/uL (1.0-4.8) Monocytes # (Auto) 0.9 x10^3/uL (0.0-1.1) Eosinophils # (Auto) 0.1 x10^3/uL (0.0-0.7) Basophils # (Auto) 0.1 x10^3/uL (0.0-0.2) Sodium Level 143 mmol/L (136-145) Potassium Level 3.7 mmol/L (3.5-5.1) Chloride Level 110 mmol/L (98-107) Carbon Dioxide Level 25 mmol/L (21-32) Anion Gap 8 (6-14) Blood Urea Nitrogen 14 mg/dL (7-20) Creatinine 0.7 mg/dL (0.6-1.0) Estimated GFR (Cockcroft-Gault) 79.5 Glucose Level 99 mg/dL (70-99) Calcium Level 8.2 mg/dL (8.5-10.1) Triglycerides Level 48 mg/dL (0-150) Cholesterol Level 134 mg/dL (0-200) LDL Cholesterol, Calculated 60 mg/dL (0-100) VLDL Cholesterol, Calculated 10 mg/dL (0-40) Non-HDL Cholesterol Calculated 70 mg/dL (0-129) HDL Cholesterol 64 mg/dL (40-60) Cholesterol/HDL Ratio 2.1 Thyroid Stimulating Hormone (TSH) 0.673 uIU/mL (0.358-3.74) JAYESH YIN MD Oct 25, 2019 17:18
[2019-10-25] MEDS: NITROFURANTOIN MONOHYD/M-CRYST 100 MG CAPSULE. PO SCH (21:48)
[2019-10-25] MEDS: METOPROLOL TART IMMED RELEASE 25 MG TABLET. PO SCH (21:49)
[2019-10-26 03:00] VITALS: BP 182/74
[2019-10-26 04:43] VITALS: BP 159/70
[2019-10-26 07:00] VITALS: BP 139/50
[2019-10-26] MEDS: NITROFURANTOIN MONOHYD/M-CRYST 100 MG CAPSULE. PO SCH (08:15)
[2019-10-26] MEDS: DONEPEZIL HCL 5 MG TABLET. PO SCH (08:15)
[2019-10-26] MEDS: ATORVASTATIN CALCIUM 40 MG TABLET. PO SCH (08:16)
[2019-10-26] MEDS: ASPIRIN CHEWABLE 81 MG TABLET. PO SCH (08:16)
[2019-10-26] MEDS: amLODIPine BESYLATE 5 MG TABLET PO SCH (08:20)
[2019-10-26] MEDS: METOPROLOL TART IMMED RELEASE 25 MG TABLET. PO SCH (08:21)
--- NOTE | 2019-10-26 10:52 | SNU/HH DC ---
DISCHARGE WITH HOME HEALTH DISCHARGE INFORMATION: Discharge Date: Oct 26, 2019 Final Diagnosis: Problems Medical Problems: (1) Fatigue Status: Acute (2) Syncope and collapse Status: Acute (3) Weakness Status: Acute Condition on Discharge: Stable CODE STATUS: Code Status: Full HOME HEALTH: Face to Face: I certify this patient is under my care and that I, or a nurse practitioner or physician's front desk assistant working with me, had a face to face encounter that meets the physician face to face encounter requirements with this patient on []. Medical Complications: Dementia, HTN RN For Eval/Treatment: Yes Physical Therapy For: Evalulation/Treatment Occupational Therapy For: Evaluation/Treatment Speech Language Pathology For: Evaluation/Treatment Home Health Aide For: Self-care WEB PUBLISHER For: Community Resources Pt Meets Homebound Status: Extreme weakness w/ amb. POST DISCHARGE ORDERS: Activity Instructions for Disc: Resume previous activity Weight Bearing Status after Di: As tolerated DIET AFTER DISCHARGE: Cardiac CHECKS AFTER DISCHARGE: Checks after discharge: Check blood press - daily FOLLOW-UP: PCP to follow Home Health: she has a loop recorder and is good till sep 2020, ff up dr del angel as insrtucted TREATMENT/EQUIPMENT ORDERS: Adaptive Equipment Issued: None CERTIFICATION STATEMENT: Certification Statement: Certification Statement: Based on the above finding, I certify that this patient is confined to the home and needs intermittent long-term care, physical therapy and/or speech therapy, or continues to need occupational therapy.~ This patient is under my care, and I have initiated the establishment of the plan of care.~ This patient will be followed by myself or a community physician who will periodically review the plan of care. Home Meds Active Scripts Nitrofurantoin Monohyd/M-Cryst (NITROFURANTOIN MONO-MCR 100 MG) 100 Mg Capsule, 100 MG PO BID for uti for 7 Days, #14 CAP Prov:GENEVIEVE REDDING MD 10/25/19 Reported Medications Atorvastatin Calcium (ATORVASTATIN CALCIUM) 40 Mg Tablet, 1 TAB PO DAILY for cholesterol, TAB 10/25/19 Amlodipine Besylate (AMLODIPINE BESYLATE) 5 Mg Tablet, 5 MG PO DAILY for B/P, TAB 10/25/19 Metoprolol Tartrate (METOPROLOL TARTRATE) 25 Mg Tablet, 1 TAB PO DAILY for B/P, TAB 10/25/19 Aspirin (ASPIRIN) 81 Mg Tab.chew, 1 TAB PO DAILY for heart disease, TAB 10/25/19 Donepezil Hcl (DONEPEZIL HCL) 5 Mg Tablet, 1 TAB PO DAILY for B/P, TAB 10/25/19 GENEVIEVE REDDING MD Oct 26, 2019 10:52
--- NOTE | 2019-10-26 10:55 | PDOC3 ---
Discharge Summary Visit Information Date of Admission: Oct 24, 2019 Date of Discharge: Oct 26, 2019 Admitting Diagnosis Comment: 1. Syncope: possibly vasovagal.unclear duration. negative for CSH and orthostasis 2. ILR in situ: medtronic 3. CAD: remote CABG. no recent LHC/MPI. clinically stable, CP free 4. HTN: controlled 5. HLP 6. Hx of CVA 7. Gait disorder 8. Dementia 9. UTI: defer to PCP 10. ANAPHYLAXIS to PCN Final Diagnosis Problems Medical Problems: (1) Fatigue Status: Acute (2) Syncope and collapse Status: Acute (3) Weakness Status: Acute Brief Hospital Course Allergies Allergies Coded Allergies Type Severity Reaction Last Updated Verified Penicillins Allergy Severe severe rash sob 10/24/19 Yes Vital Signs Vital Signs Date Time Temp Pulse Resp B/P (MAP) Pulse Ox O2 Delivery O2 Flow Rate FiO2 10/26/19 08:21 73 139/50 10/26/19 08:00 Room Air 10/26/19 07:00 98.2 18 95 98.2 Lab Results Laboratory Tests Test 10/24/19 11:07 10/24/19 18:00 10/24/19 23:55 10/25/19 04:05 White Blood Count 13.9 x10^3/uL (4.0-11.0) 7.7 x10^3/uL (4.0-11.0) Red Blood Count 4.87 x10^6/uL (3.50-5.40) 4.12 x10^6/uL (3.50-5.40) Hemoglobin 14.8 g/dL (12.0-15.5) 12.5 g/dL (12.0-15.5) Hematocrit 43.6 % (36.0-47.0) 36.8 % (36.0-47.0) Mean Corpuscular Volume 90 fL (79-100) 89 fL (79-100) Mean Corpuscular Hemoglobin 30 pg (25-35) 30 pg (25-35) Mean Corpuscular Hemoglobin Concent 34 g/dL (31-37) 34 g/dL (31-37) Red Cell Distribution Width 12.7 % (11.5-14.5) 12.6 % (11.5-14.5) Platelet Count 189 x10^3/uL (140-400) 162 x10^3/uL (140-400) Neutrophils (%) (Auto) 88 % (31-73) 48 % (31-73) Lymphocytes (%) (Auto) 8 % (24-48) 37 % (24-48) Monocytes (%) (Auto) 4 % (0-9) 12 % (0-9) Eosinophils (%) (Auto) 0 % (0-3) 2 % (0-3) Basophils (%) (Auto) 0 % (0-3) 1 % (0-3) Neutrophils # (Auto) 12.2 x10^3/uL (1.8-7.7) 3.7 x10^3/uL (1.8-7.7) Lymphocytes # (Auto) 1.2 x10^3/uL (1.0-4.8) 2.9 x10^3/uL (1.0-4.8) Monocytes # (Auto) 0.5 x10^3/uL (0.0-1.1) 0.9 x10^3/uL (0.0-1.1) Eosinophils # (Auto) 0.0 x10^3/uL (0.0-0.7) 0.1 x10^3/uL (0.0-0.7) Basophils # (Auto) 0.0 x10^3/uL (0.0-0.2) 0.1 x10^3/uL (0.0-0.2) Segmented Neutrophils % 62 % (35-66) Band Neutrophils % 3 % (0-9) Lymphocytes % 30 % (24-48) Monocytes % 4 % (0-10) Eosinophils % 1 % (0-5) Platelet Estimate Adequate (ADEQUATE) Prothrombin Time 12.0 SEC (11.7-14.0) Prothromb Time International Ratio 0.9 (0.8-1.1) Sodium Level 143 mmol/L (136-145) 143 mmol/L (136-145) Potassium Level 4.0 mmol/L (3.5-5.1) 3.7 mmol/L (3.5-5.1) Chloride Level 108 mmol/L (98-107) 110 mmol/L (98-107) Carbon Dioxide Level 25 mmol/L (21-32) 25 mmol/L (21-32) Anion Gap 10 (6-14) 8 (6-14) Blood Urea Nitrogen 16 mg/dL (7-20) 14 mg/dL (7-20) Creatinine 0.9 mg/dL (0.6-1.0) 0.7 mg/dL (0.6-1.0) Estimated GFR (Cockcroft-Gault) 59.5 79.5 BUN/Creatinine Ratio 18 (6-20) Glucose Level 120 mg/dL (70-99) 99 mg/dL (70-99) Calcium Level 9.7 mg/dL (8.5-10.1) 8.2 mg/dL (8.5-10.1) Total Bilirubin 0.2 mg/dL (0.2-1.0) Aspartate Amino Transf (AST/SGOT) 32 U/L (15-37) Alanine Aminotransferase (ALT/SGPT) 31 U/L (14-59) Alkaline Phosphatase 77 U/L (46-116) Troponin I Quantitative < 0.017 ng/mL (0.000-0.055) < 0.017 ng/mL (0.000-0.055) Total Protein 7.5 g/dL (6.4-8.2) Albumin 3.9 g/dL (3.4-5.0) Albumin/Globulin Ratio 1.1 (1.0-1.7) Urine Collection Type Unknown Urine Color Yellow Urine Clarity Cloudy Urine pH 6.0 Urine Specific [place] 1.010 Urine Protein Negative mg/dL (NEG-TRACE) Urine Glucose (UA) Negative mg/dL (NEG) Urine Ketones (Stick) Negative mg/dL (NEG) Urine Blood Negative (NEG) Urine Nitrite Negative (NEG) Urine Bilirubin Negative (NEG) Urine Urobilinogen Dipstick 0.2 mg/dL (0.2 mg/dL) Urine Leukocyte Esterase Moderate (NEG) Urine RBC 0 /HPF (0-2) Urine WBC 11-20 /HPF (0-4) Urine Squamous Epithelial Cells Few /LPF Urine Amorphous Sediment Present /HPF Urine Bacteria Few /HPF (0-FEW) Urine Mucus Slight /LPF Triglycerides Level 48 mg/dL (0-150) Cholesterol Level 134 mg/dL (0-200) LDL Cholesterol, Calculated 60 mg/dL (0-100) VLDL Cholesterol, Calculated 10 mg/dL (0-40) Non-HDL Cholesterol Calculated 70 mg/dL (0-129) HDL Cholesterol 64 mg/dL (40-60) Cholesterol/HDL Ratio 2.1 Thyroid Stimulating Hormone (TSH) 0.673 uIU/mL (0.358-3.74) Brief Hospital Course Ms. Mojica is a 84 old who came from home and has a caring dtr 25 miles away, admitted for recurrent syncope actually has a loop recorder already implanted by outside cards bec of the same recurrent issue. ECho EF 55-60 % normal PA press ures, VERY good echo, trace MR and TR. She will ff up with DR del angel for the downloadings of loop recorder THey refuse SNU recommenned and we are arranging HH INCIDENTAL UTI, ANAPHYLAXIS to PCN, levaquin cant do bec of QT prolongation, cards recommended to shift to another, SHe tolerated macrobid fine., HH today with dtr dc time [id number] mins cumulatiuve Discharge Information Condition at Discharge: Improved, Stable Disposition/Orders: D/C to Home w/ HH Scheduled Amlodipine Besylate (Amlodipine Besylate) 5 Mg Tablet, 5 MG PO DAILY for B/P, (Reported) Entered as Reported by: RADHA CAICEDO on 10/25/19538 Last Action: Continued on 10/25/19808 by RANULFO MODI RN Aspirin (Aspirin) 81 Mg Tab.chew, 1 TAB PO DAILY for heart disease, (Reported) Entered as Reported by: RADHA CAICEDO on 10/25/19538 Last Action: Continued on 10/25/19808 by RANULFO MODI RN Atorvastatin Calcium (Atorvastatin Calcium) 40 Mg Tablet, 1 TAB PO DAILY for cholesterol, (Reported) Entered as Reported by: RADHA CAICEDO on 10/25/19538 Last Action: Continued on 10/25/19808 by RANULFO MODI RN Donepezil Hcl (Donepezil Hcl) 5 Mg Tablet, 1 TAB PO DAILY for B/P, (Reported) Entered as Reported by: RADHA CAICEDO on 10/25/19534 Last Action: Continued on 10/25/19808 by RANULFO MODI RN Metoprolol Tartrate (Metoprolol Tartrate) 25 Mg Tablet, 1 TAB PO DAILY for B/P, (Reported) Entered as Reported by: RADHA CAICEDO on 10/25/19 0539 Last Action: Continued on 10/25/19 08 by RANULFO MODI, RN Nitrofurantoin Monohyd/M-Cryst (Nitrofurantoin [place]-Mcr 100 Mg) 100 Mg Capsule, 100 MG PO BID for uti for 7 Days, #14 Prescribed by: GENEVIEVE REDDING on 10/25/19 1231 GENEVIEVE REDDING MD Oct 26, 2019 10:55
[2019-10-26 11:00] VITALS: BP 137/60
== END 2019-10-26 13:23 | disposition home health service (06) | DRG 690 ==
LOC: ER 10:42 → 6 SOUTH 15:00
PROVIDERS: ADMIT Internal Medicine; ATTEND Internal Medicine
PROC: 4B02XSZ Measurement of Cardiac Pacemaker, External Approach (ICD-10-PCS; principal; 2019-10-25)
DX: N39.0 Urinary tract infection, site not specified (principal); T88.6XXA Anaphylactic reaction due to adverse effect of correct drug or medicament properly administered, initial encounter; E78.5 Hyperlipidemia, unspecified; I25.10 Atherosclerotic heart disease of native coronary artery without angina pectoris; E86.0 Dehydration; T36.0X5A Adverse effect of penicillins, initial encounter; F03.90 Unspecified dementia, unspecified severity, without behavioral disturbance, psychotic disturbance, mood disturbance, and anxiety; F41.9 Anxiety disorder, unspecified; I10 Essential (primary) hypertension; Z96.651 Presence of right artificial knee joint; M19.90 Unspecified osteoarthritis, unspecified site; Z79.82 Long term (current) use of aspirin; Z79.899 Other long term (current) drug therapy; Z82.49 Family history of ischemic heart disease and other diseases of the circulatory system; Z86.73 Personal history of transient ischemic attack (TIA), and cerebral infarction without residual deficits; Z95.1 Presence of aortocoronary bypass graft
CPT/HCPCS: 36415; 70450; 71045; 80048; 80053; 80061; 81001; 84443; 84484; 85007; 85025; 85610; 87086; 93005; 93306; 96360; J0360; J1956; J7030; 97110; 97535; 99285-25; G0378